=== PATIENT | female | born 1990 | race Caucasian/White ===

== ENCOUNTER 2020-09-08 23:43 | Emergency (ER) | payer OTHER ==
[2020-09-08] MEDS ORDERED: TETRACAINE HCL 0.5% OPH SOLN 4 ML OD ONE (23:54)
--- NOTE | 2020-09-08 23:55 | ER Document Report ---
ED Medical Screen (RME) - General Stated Complaint: FOREIGN OBJECT IN RIGHT EYE Time Seen by Provider: 09/08/20 23:52 Notes: Patient is a 29-year-old female who presents emergency department with a chief complaint of right eye pain. Patient states that she was hammering wood at home around 5:00 this evening and a piece of wood shot back at her and gotten to her right eye. She attempted to flush it at home, but had little relief. Patient states that she has a hard time looking to the right. Exam: Erythema noted to right eye. I have greeted and performed a rapid initial assessment of this patient. A comprehensive ED assessment and evaluation of the patient, analysis of test results and completion of medical decision making process will be conducted by an additional ED providers.
[2020-09-09] MEDS ORDERED: HYDROCODONE/ACETAMINOPHEN 5-325 MG (6 TAB/ER DISP) PO PRN (00:35)
[2020-09-09] MEDS ORDERED: HYDROCODONE/ACETAMINOPHEN 5-325 MG TABLET PO ONE (00:35)
[2020-09-09] MEDS ORDERED: DIPH/PERTUSS(ACELL)/TETANUS VAC/PF 0.5 ML SYR (>=10YO) IM ONE (00:35)
--- NOTE | 2020-09-09 00:40 | ER Document Report ---
ED General - General Stated Complaint: FOREIGN OBJECT IN RIGHT EYE Time Seen by Provider: 09/08/20 23:52 - HPI Context: This is a 29-year-old female who presents complaining of right eye pain. Patient states the pain started early today when she was working on a wooden fence and piece of wood fell onto her right eye. Patient states she tried to flush the piece of wood out at home without success. Patient states the pain is a 5 out of 5. Patient states that closing her eye alleviates the pain slightly and opening her eye and light exacerbates her pain. Patient does not know when she had her last tetanus booster. Patient denies wearing contacts or glasses. Patient states her eyesight is usually better than 20/20 since she had PRK. Patient denies pain or injury to left eye. Associated symptoms: Other - See HPI Exacerbated by: Other - See HPI Relieved by: Other - See HPI Past Medical History - General Information source: Patient - Social History Smoking Status: Never Smoker Chew tobacco use (# tins/day): No Frequency of alcohol use: None Drug Abuse: None Family History: Reviewed & Not Pertinent Patient has homicidal ideation: No Review of Systems - Review of Systems Constitutional: No symptoms reported EENT: Eye pain Cardiovascular: No symptoms reported Respiratory: No symptoms reported Gastrointestinal: No symptoms reported Genitourinary: No symptoms reported Female Genitourinary: No symptoms reported Musculoskeletal: No symptoms reported Skin: No symptoms reported Hematologic/Lymphatic: No symptoms reported Neurological/Psychological: No symptoms reported -: Yes All other systems reviewed and negative Physical Exam - Vital signs Vitals: Temp Pulse Resp BP Pulse Ox 98.9 F 83 20 124/77 99 09/08/20 23:55 09/08/20 23:55 09/08/20 23:55 09/08/20 23:55 09/08/20 23:55 - Notes Notes: CONSTITUTIONAL [Vital signs reviewed, Patient appears uncomfortable, Alert and oriented X 3, Normal stature.] HEAD Normocephalic.] EYES Right eye: Patient is keeping right eye closed. Upon opening the eye to instill tetracaine eyedrops after the patient completed her visual acuity exam, it was noted that she has a significant amount of conjunctival injection. No obvious foreign body is seen. Pupil is round and equally reactive. See further exam details on slit-lamp exam. UPPER EXTREMITY [Inspection normal, No cyanosis, No clubbing, No edema, 2+ radial pulses.] LOWER EXTREMITY [Inspection normal, No cyanosis, No clubbing, No edema, No calf tenderness, 2+ femoral pulses.] NEURO Unable to do complete cranial nerve exam due to patient's eye pain. Speech normal.] SKIN [Skin is warm, Skin is dry, Skin is normal color.] PSYCHIATRIC [Normal affect. ] - HEENT Visual acuity- Right eye: 20/40 Visual acuity- Left eye: 20/20 Visual acuity- Both eyes: 20/20 Corrective lenses worn: No Course - Re-evaluation Re-evalutation: 09/09/20 00:57 Results of slit-lamp exam discussed with patient. Diagnosis, plan of care, follow-up all discussed with patient. All questions were answered prior to discharge. Emergency signs and symptoms, reasons to return to the emergency department discussed with patient. - Vital Signs Vital signs: Temp Pulse Resp BP Pulse Ox 98.9 F 83 20 124/77 99 09/08/20 23:55 09/08/20 23:55 09/08/20 23:55 09/08/20 23:55 09/08/20 23:55 Procedures - Eye Procedure Right Time completed: 00:40 - Right high Foreign body removal: Right Alcaine Drops Administered: Yes Fluorescein applied: Right Antibiotic Oinment/Drps Admin: Right eye Slit lamp used: Yes Notes: 09/09/20 00:58 Initial slit-lamp exam revealed no evidence of cell or flare. There is no hypopyon or hyphema noted. Pupil was round and reactive to light. Fluorescein was instilled in the patient's midline. Sj's test was negative. There is a "ice rink pattern" present on the patient's REVIEW OF SYSTEMS: CONSTITUTIONAL : Denies fever, chills, or sweats. Denies recent illness. EENT: Denies eye, ear, throat, or mouth pain or symptoms. Denies nasal or sinus congestion. CARDIOVASCULAR: Denies chest pain. RESPIRATORY: Denies cough, cold, or chest congestion. Denies shortness of breath, difficulty breathing, or wheezing. GASTROINTESTINAL: Denies abdominal pain. Denies nausea, vomiting, or diarrhea. Denies constipation. Last BM: GENITOURINARY: Denies difficulty urinating, painful urination, burning, frequency, or blood in urine. FEMALE GENITOURINARY: Denies vaginal bleeding, abnormal or irregular periods. LMP: MUSCULOSKELETAL: Denies neck or back pain or joint pain or swelling. SKIN: Denies rash or skin lesions. HEMATOLOGIC : Denies easy bruising or bleeding. LYMPHATIC: Denies swollen, enlarged glands. NEUROLOGICAL: Denies altered mental status or loss of consciousness. Denies headache. Denies weakness or paralysis or loss of use of either side. Denies problems with gait or speech. Denies sensory or motor loss. PSYCHIATRIC: Denies anxiety or stress or depression. ALL OTHER SYSTEMS REVIEWED AND NEGATIVE. Fluorescein uptake is involved. There were no dendritic lesions noted to the right eye. The right eyelid was everted and found to have a small piece of fibrous material which was easily removed with a Q-tip. The eye was then reexamined with slit lamp using blue light and fluorescein. No other foreign body or other floor seen uptake was noted other than the "skating rink pattern" initially noted. Discharge - Discharge Clinical Impression: Foreign body of right eye Qualifiers: Encounter type: initial encounter Qualified Code(s): T15.91XA - Foreign body on external eye, part unspecified, right eye, initial encounter Corneal abrasion, right Qualifiers: Encounter type: initial encounter Qualified Code(s): S05.01XA - Injury of conjunctiva and corneal abrasion without foreign body, right eye, initial encounter Condition: Stable Disposition: HOME, SELF-CARE Instructions: Corneal Abrasion ([facility]) Additional Instructions: Return to the Emergency Department without delay if any worse. Be certain to follow-up with your eye doctor on 09/10/2020 or with the eye doctor that you have been referred to on 09/10/2020. HOME CARE INSTRUCTIONS & INFORMATION: Thank you for choosing us for your medical needs. We hope you're satisfied with the care you received. After you leave, you must properly care for your problem and, at the same time, observe its progress. Any condition can change. Some illnesses can change rapidly over hours or days. If your condition worsens, return to the Emergency Department or see your physician promptly. ABOUT YOUR X-RAYS AND EKG'S: If you had an EKG or X-rays taken, they have been read by the Emergency Physician. The X-rays and EKG's will also be read by a Radiologist or Military Professional within 24 hours. If discrepancies are noted, you will be notified by telephone. Please be certain the ED has a correct telephone number & address where you can be reached. Also, realize that some fractures or abnormalities do not show up on initial X-rays. If your symptoms continue, see your physician. ABOUT YOUR LABORATORY TEST: If you had laboratory tests, the results have been reviewed by the Emergency Physician. Some test results (for example cultures) may not be available for several days. You will be contacted if any test result shows you need additional treatment. Please be certain the ED has a correct telephone number and address where you can be reached. ABOUT YOUR MEDICATIONS: You will receive instructions on how to take your medicine on the prescription label you receive. Additional information may be provided by the Pharmacy. If you have questions afterwards, call the ED for clarification or further instructions. Some prescribed medications may cause drowsiness. Do not perform tasks such as driving a car or operating machinery without consulting your Pharmacist. If you feel you need a refill of pain medication, your condition will need re-evaluation. Please do not call for a refill of any medication. ABOUT YOUR SIGNATURE: Signature of this document acknowledges to followin. Understanding that you received emergency treatment and that you may be released before al medical problems are known or treated. Please be certain the ED has a correct phone number & address where you can be reached. 2. Acknowledgement that you will arrange for follow-up care as recommended. 3. Authorization for the Emergency Physician to provide information to your follow-up Physician in order to maximize your care. AT ANY TIME, IF YOUR SYMPTOMS CHANGE SIGNIFICANTLY OR WORSEN OR YOU DEVELOP NEW SYMPTOMS, RETURN TO THE EMERGENCY DEPARTMENT IMMEDIATELY FOR RE-EVALUATION. OUR GOAL IS TO PROVIDE EXCELLENT MEDICAL CARE! WE HOPE THAT WE HAVE MET YOUR EXPECTATIONS DURING YOUR EMERGENCY DEPARTMENT VISIT AND THAT YOU FEEL YOU HAVE RECEIVED EXCELLENT CARE! Corneal Abrasion You have a corneal abrasion, a scratch on the surface of the eye. The pain of a corneal abrasion feels like a sharp particle in the eye. Usually, antibiotics are placed in the eye to prevent infection. Occasionally, medication will be placed in the eye to dilate the pupil. This is done to relieve some of your discomfort and is only temporary. Pain medication may be required. Don't drive or operate machinery until you have the use of both your eyes. The abrasion usually is healed in one or two days. A follow-up examination to confirm healing is recommended. Call the doctor or return at once if you develop severe pain, decreasing vision, eye swelling, or purulent drainage. Prescriptions: Flurbiprofen Sodium 1 drop OD Q1HP PRN #2.5 ml PRN Reason: pain Hydrocodone/Acetaminophen [[place] 5-325 mg Tablet] 1 tab PO Q6HP PRN #15 tablet PRN Reason: severe pain Erythromycin Base [Erythromycin Oph 1 Gm Oint Ud] 1 applic OD Q4H 7 Days #1 tube Referrals: DEBORA VALLE MD [ACTIVE STAFF] - 09/10/20 (Call 09/10/2020 to arrange follow-up appointment.)
[2020-09-09] MEDS ORDERED: ERYTHROMYCIN 0.5% OPH OINTMENT 3.5 GM (ER DISP) OD SCH (00:45)
[2020-09-09 01:17] VITALS: BP 119/76
[2020-09-09] MEDS ORDERED: TETRACAINE HCL 0.5% OPH SOLN 4 ML ONE (02:52)
== END 2020-09-09 01:18 | disposition home or self-care (01) ==
LOC: ER 23:43
DX: T15.91XA Foreign body on external eye, part unspecified, right eye, initial encounter (principal); S05.01XA Injury of conjunctiva and corneal abrasion without foreign body, right eye, initial encounter; H57.11 Ocular pain, right eye; W20.8XXA Other cause of strike by thrown, projected or falling object, initial encounter; Z23 Encounter for immunization
CPT/HCPCS: 99283; 96372; 90715; J3490